=== PATIENT | male | born 1980 | race African-American/Black ===

== ENCOUNTER 2016-09-15 11:54 | Observation (INO) | payer MEDICAID ==
[~2016-09-15] VITALS: Ht 180.3 cm; Wt 67.0 kg
[~2016-09-15 11:54] MED LIST: ALBU6.7H INH; AMOX-291 PO; ARIP15TA2 PO; ARIP20TA8 PO; ARIP300S IM; BECL8.7A5 INH; BENZ1TAB61 PO; FLUT15.88 NAS; FLUT16SP NAS; LORA1TAB35 PO; MIRT15TA PO; OLAN5TAB3 PO; OLAN5TAB9 PO; OXYC500S2 PO; PROVENTIL NS; QVAR IH; RISP2TAB35 PO; TRAM50TA2 PO
[2016-09-15 12:54] LABS: ASPARTATE AMINO TRANSFERASE 20 U/L (15-37); BLOOD UREA NITROGEN 15 mg/dL (7-18)
[2016-09-15 12:56] LABS: ACETAMINOPHEN < 2 mcg/mL (10-30)
[2016-09-15 13:28] LABS: DAU SCREEN DISCLAIMER
[2016-09-15] MEDS ORDERED: ACETAMINOPHEN 325 MG TABLET PO PRN (15:30)
[2016-09-15] MEDS ORDERED: DOCUSATE 100 MG CAPSULE PO PRN (15:30)
[2016-09-15] MEDS ORDERED: LORazepam 1MG TABLET PO ONE (15:30)
[2016-09-15] MEDS ORDERED: OLANZAPINE 2.5 MG TABLET PO ONE (15:30)
[2016-09-15] MEDS: NICOTINE 14MG/24 HR PATCH.TD24 TD SCH (15:30)
[2016-09-15] MEDS ORDERED: ONDANSETRON ODT 4 MG PO PRN (15:30)
[2016-09-15] MEDS ORDERED: POLYETHYLENE GLYCOL 17 GM PACKET PO PRN (15:30)
[2016-09-15] MEDS ORDERED: BISACODYL 10 MG SUPP PR PRN (15:30)
[2016-09-15] MEDS ORDERED: AMOX1TAB64 PO (17:05)
[2016-09-15] MEDS ORDERED: ALBU6.7H INH (17:05)
[2016-09-15] MEDS ORDERED: BECL8.7A5 INH (17:07)
[2016-09-15] MEDS ORDERED: LORA10TA75 PO (17:07)
[2016-09-15] MEDS ORDERED: BENZ1TAB61 PO (17:07)
[2016-09-15 17:28] VITALS: BP 116/66
[2016-09-15 19:16] VITALS: BP 113/59
[2016-09-15] MEDS: OLANZAPINE 2.5 MG TABLET PO SCH (20:40)
[2016-09-16] MEDS: LORazepam 1MG TABLET PO PRN ×2 (07:58→15:38)
[2016-09-16] MEDS: ARIPIPRAZOLE 15 MG TABLET PO SCH (07:58)
[2016-09-16 07:59] VITALS: BP 112/67
[2016-09-16] MEDS ORDERED: IPRATROPIUM 0.5 MG/2.5 ML INHA ONE ×2 (08:15→16:19)
[2016-09-16] MEDS ORDERED: ALBUTEROL SULFATE 2.5 MG/3 ML ONE ×2 (08:15→16:19)
[2016-09-16] MEDS: ALBUTEROL/IPRATROPIUM 2.5MG/0.5MG, 3 ML NEB PRN ×2 (08:18→16:22)
[2016-09-16] MEDS: NICOTINE 14MG/24 HR PATCH.TD24 TD SCH (11:07)
[2016-09-16 19:18] VITALS: BP 110/68
[2016-09-16] MEDS: LACTOBACILLUS CHEW TABLET PO SCH (20:44)
[2016-09-16] MEDS: OLANZAPINE 2.5 MG TABLET PO SCH (20:44)
[2016-09-16] MEDS: AMOXICILLIN/CLAV 875-125MG TABLET PO SCH (20:45)
[2016-09-17] MEDS: ALBUTEROL/IPRATROPIUM 2.5MG/0.5MG, 3 ML NEB PRN ×2 (05:52→16:20)
[2016-09-17 07:03] VITALS: BP 120/76
[2016-09-17] MEDS: LACTOBACILLUS CHEW TABLET PO SCH ×3 (08:11→20:45)
[2016-09-17] MEDS: AMOXICILLIN/CLAV 875-125MG TABLET PO SCH ×2 (08:11→20:45)
[2016-09-17] MEDS: ARIPIPRAZOLE 15 MG TABLET PO SCH (08:15)
[2016-09-17] MEDS: NICOTINE 14MG/24 HR PATCH.TD24 TD SCH (15:59)
[2016-09-17 19:09] VITALS: BP 107/64
[2016-09-17] MEDS: OLANZAPINE 2.5 MG TABLET PO SCH (20:45)
[2016-09-17] MEDS: TEMPLATE NON-FORMULARY MED. (QVAR 80 MCG) INH SCH (20:48)
[2016-09-18 07:45] VITALS: BP 132/76
[2016-09-18] MEDS: AMOXICILLIN/CLAV 875-125MG TABLET PO SCH ×2 (08:18→20:16)
[2016-09-18] MEDS: TEMPLATE NON-FORMULARY MED. (QVAR 80 MCG) INH SCH ×2 (08:18→21:10)
[2016-09-18] MEDS: LACTOBACILLUS CHEW TABLET PO SCH ×3 (08:18→20:16)
[2016-09-18] MEDS: ARIPIPRAZOLE 15 MG TABLET PO SCH (08:20)
[2016-09-18] MEDS: ALBUTEROL/IPRATROPIUM 2.5MG/0.5MG, 3 ML NEB PRN ×2 (10:55→23:30)
[2016-09-18] MEDS: NICOTINE 14MG/24 HR PATCH.TD24 TD SCH (15:30)
[2016-09-18 19:43] VITALS: BP 130/76
[2016-09-18] MEDS: OLANZAPINE 2.5 MG TABLET PO SCH (20:16)
[2016-09-18] MEDS ORDERED: ALBUTEROL SULFATE 2.5 MG/3 ML ONE (23:32)
[2016-09-19 07:36] VITALS: BP 132/84
[2016-09-19] MEDS: ARIPIPRAZOLE 15 MG TABLET PO SCH (09:00)
[2016-09-19] MEDS: TEMPLATE NON-FORMULARY MED. (QVAR 80 MCG) INH SCH (09:00)
[2016-09-19] MEDS: AMOXICILLIN/CLAV 875-125MG TABLET PO SCH (09:23)
[2016-09-19] MEDS: LACTOBACILLUS CHEW TABLET PO SCH (09:23)
[2016-09-19] MEDS ORDERED: AMOX1TAB12 PO (10:13)
[2016-09-19] MEDS ORDERED: QVAR INH (10:13)
[2016-09-19] MEDS ORDERED: ACID1TAB7 PO (10:13)
[2016-09-19] MEDS ORDERED: OLAN2.5T5 PO (10:13)
== END 2016-09-19 11:43 ==
LOC: ED 14:31 → EDIP 14:32 → ED 14:49 → 3E 16:07
PROVIDERS: ADMIT Internal Medicine; ATTEND Internal Medicine
DX: R45.851 Suicidal ideations (principal); F15.90 Other stimulant use, unspecified, uncomplicated; F31.9 Bipolar disorder, unspecified; F20.9 Schizophrenia, unspecified; J45.909 Unspecified asthma, uncomplicated; F17.210 Nicotine dependence, cigarettes, uncomplicated
CPT/HCPCS: 36415; 71010; 80053; 80307; 80329; 85025; 93005; 94640; 99285; G0378; J7613; J7620; J7644; G0480

== ENCOUNTER 2017-01-03 17:32 | Emergency (ER) | payer MEDICAID ==
[~2017-01-03] VITALS: Ht 180.3 cm; Wt 69.0 kg
[~2017-01-03 17:32] MED LIST changes: +ACID1TAB7 PO; +AMOX1TAB12 PO; +AMOX1TAB64 PO; -ARIP15TA2 PO; +ARIP15TA3 PO; +ARIP20TA5 PO; -ARIP20TA8 PO; -BECL8.7A5 INH; +BECL8.7A7 INH; +LORA10TA75 PO; +OLAN2.5T10 PO; +QVAR INH
[2017-01-03 18:11] VITALS: BP 122/52
== END 2017-01-03 18:20 | disposition home or self-care (01) ==
LOC: ED 18:00
DX: J45.21 Mild intermittent asthma with (acute) exacerbation (principal); F25.9 Schizoaffective disorder, unspecified
CPT/HCPCS: 93005; 99283

== ENCOUNTER 2017-04-17 07:19 | Observation (INO) | payer MEDICAID ==
[~2017-04-17] VITALS: Ht 180.3 cm; Wt 78.0 kg
[2017-04-17] MEDS ORDERED: ZIPRASIDONE 20 MG INJ IM ONE ×2 (07:30→07:49)
[2017-04-17 07:50] LABS: BASOPHILS # (AUTO) 0.07 x10^3/uL (0-0.1); BASOPHILS % (AUTO) 1 % (0-1); EOSINOPHILS # (AUTO) 0.16 x10^3/uL (0-0.4); EOSINOPHILS % (AUTO) 3 % (1-7); LYMPHOCYTES # (AUTO) 1.82 x10^3/uL (1-3.4); LYMPHOCYTES % (AUTO) 30 % (22-44); MD NO; MEAN CORPUSCULAR HEMOGLOBIN 29.6 pg (27.5-34.5); MEAN CORPUSCULAR VOLUME 89.4 fL (81-97); MEAN PLATELET VOLUME 7.3 fL (7.4-10.4); MONOCYTES # (AUTO) 0.69 x10^3/uL (0.2-0.8); MONOCYTES % (AUTO) 11 % (2-9); NEUTROPHILS # (AUTO) 3.41 x10^3/uL (1.8-6.8); NEUTROPHILS % (AUTO) 56 % (42-75); PLATELET COUNT 280 x10^3/uL (130-400); RED BLOOD COUNT 5.12 x10^6/uL (4.38-5.82); RED CELL DISTRIBUTION WIDTH 14.2 % (9.4-14.8)
[2017-04-17] MEDS ORDERED: COGENTIN PO (07:58)
[2017-04-17] MEDS ORDERED: ARIP2TAB2 PO (07:58)
[2017-04-17 08:04] LABS: ALBUMIN 3.9 g/dL (3.4-5.0); ANION GAP 5 mmol/L (5-15); CALCIUM 8.8 mg/dL (8.5-10.1); CHLORIDE 105 mmol/L (98-107); CREATININE 1.21 mg/dL (0.7-1.3)
[2017-04-17 08:05] LABS: AMPHETAMINE SCREEN, URINE Negative (Negative); BARBITURATE SCREEN, URINE Negative (Negative); BENZODIAZEPINE SCREEN, URINE Negative (Negative); CANNABINOID SCREEN, URINE Negative (Negative); COCAINE SCREEN, URINE Negative (Negative); METHADONE SCREEN, URINE Negative (Negative); OPIATE SCREEN, URINE Negative (Negative)
[2017-04-17 08:12] LABS: ACETAMINOPHEN < 2 mcg/mL (10-30); SALICYLATE LEVEL < 1.7 mg/dL (2.8-20.0)
[2017-04-17] MEDS ORDERED: HALOPERIDOL 5 MG TABLET PO PRN (12:00)
[2017-04-17] MEDS ORDERED: ONDANSETRON ODT 4 MG PO PRN (12:00)
[2017-04-17] MEDS ORDERED: HALOPERIDOL 5 MG/ML IM PRN (12:00)
[2017-04-17] MEDS ORDERED: ACETAMINOPHEN 325 MG TABLET PO PRN (12:00)
[2017-04-17] MEDS ORDERED: LORazepam 2 MG/ML, 1ML IM PRN (12:00)
[2017-04-17] MEDS ORDERED: LORazepam 1MG TABLET PO PRN (12:00)
[2017-04-17 15:14] LABS: MICROSCOPIC INDICATED
[2017-04-17 15:48] LABS: CULTURE INDICATED? NO
[2017-04-17] MEDS ORDERED: HALOPERIDOL 5 MG/ML ONE (19:27)
[2017-04-17] MEDS: BENZTROPINE 1 MG TABLET PO SCH (21:00)
[2017-04-17 21:11] VITALS: BP 115/72
[2017-04-17] MEDS ORDERED: ALBUTEROL SULFATE 2.5 MG/3 ML NPPB PRN (21:30)
[2017-04-18] MEDS ORDERED: ALBUTEROL SULFATE 2.5 MG/3 ML NPPB PRN (05:00)
[2017-04-18 07:19] VITALS: BP 125/64
[2017-04-18] MEDS: ARIPIPRAZOLE 2 MG TABLET PO SCH (09:37)
[2017-04-18] MEDS: BENZTROPINE 1 MG TABLET PO SCH ×2 (09:38→20:49)
[2017-04-18 19:25] VITALS: BP 110/66
[2017-04-19 07:20] VITALS: BP 116/70
[2017-04-19] MEDS: ARIPIPRAZOLE 2 MG TABLET PO SCH (07:55)
[2017-04-19] MEDS: BENZTROPINE 1 MG TABLET PO SCH ×2 (07:55→19:58)
[2017-04-19 19:17] VITALS: BP 102/48
[2017-04-20 07:07] VITALS: BP 123/75
[2017-04-20] MEDS: BENZTROPINE 1 MG TABLET PO SCH ×2 (08:19→21:05)
[2017-04-20] MEDS: ARIPIPRAZOLE 2 MG TABLET PO SCH (08:19)
[2017-04-20 20:07] VITALS: BP 126/75
[2017-04-21 07:37] VITALS: BP 120/76
[2017-04-21] MEDS: BENZTROPINE 1 MG TABLET PO SCH ×2 (08:17→20:44)
[2017-04-21] MEDS: ARIPIPRAZOLE 2 MG TABLET PO SCH (08:17)
[2017-04-21 20:49] VITALS: BP 112/63
[2017-04-22 07:39] VITALS: BP 114/69
[2017-04-22] MEDS: BENZTROPINE 1 MG TABLET PO SCH ×2 (08:19→20:12)
[2017-04-22] MEDS: ARIPIPRAZOLE 2 MG TABLET PO SCH (08:19)
[2017-04-22 19:48] VITALS: BP 118/58
[2017-04-23 05:54] LABS: ANION GAP 5 mmol/L (5-15); CALCIUM 8.4 mg/dL (8.5-10.1); CHLORIDE 105 mmol/L (98-107); CREATININE 1.16 mg/dL (0.7-1.3)
[2017-04-23 08:00] VITALS: BP 118/64
[2017-04-23] MEDS: ARIPIPRAZOLE 2 MG TABLET PO SCH (08:59)
[2017-04-23] MEDS: BENZTROPINE 1 MG TABLET PO SCH (08:59)
== END 2017-04-23 16:00 ==
LOC: ED 09:27 → EDIP 09:28 → ED 09:42 → 2N 21:10
PROVIDERS: ADMIT Family Medicine; ATTEND Family Medicine
DX: R45.851 Suicidal ideations (principal); F31.9 Bipolar disorder, unspecified; F25.9 Schizoaffective disorder, unspecified; J45.909 Unspecified asthma, uncomplicated; F20.0 Paranoid schizophrenia; R44.1 Visual hallucinations; R44.0 Auditory hallucinations; Z72.0 Tobacco use; Z59.0 Homelessness
CPT/HCPCS: 36415; 80048; 80307; 80329; 81001; 82040; 82962; 85025; 94640; 96372; 99285; G0378; J1630; J3486; J7613; G0480

== ENCOUNTER 2017-05-27 17:06 | Emergency (ER) | payer MEDICAID ==
[~2017-05-27] VITALS: Ht 188 cm; Wt 59.1 kg
[~2017-05-27 17:06] MED LIST changes: +ARIP2TAB2 PO; +COGENTIN PO
[2017-05-27 17:36] LABS: BASOPHILS # (AUTO) 0.02 x10^3/uL (0-0.1); BASOPHILS % (AUTO) 0 % (0-1); EOSINOPHILS # (AUTO) 0.12 x10^3/uL (0-0.4); EOSINOPHILS % (AUTO) 2 % (1-7); LYMPHOCYTES # (AUTO) 2.38 x10^3/uL (1-3.4); LYMPHOCYTES % (AUTO) 38 % (22-44); MD NO; MEAN CORPUSCULAR HEMOGLOBIN 29.6 pg (27.5-34.5); MEAN CORPUSCULAR HGB CONC 33.2 g/dL (33.2-36.2); MEAN PLATELET VOLUME 7.7 fL (7.4-10.4); MONOCYTES # (AUTO) 0.53 x10^3/uL (0.2-0.8); MONOCYTES % (AUTO) 9 % (2-9); NEUTROPHILS # (AUTO) 3.16 x10^3/uL (1.8-6.8); NEUTROPHILS % (AUTO) 51 % (42-75); PLATELET COUNT 280 x10^3/uL (130-400); RED CELL DISTRIBUTION WIDTH 14.1 % (9.4-14.8)
[2017-05-27 17:38] LABS: ALBUMIN 4.1 g/dL (3.4-5.0); ANION GAP 8 mmol/L (5-15); CALCIUM 8.6 mg/dL (8.5-10.1); CHLORIDE 105 mmol/L (98-107); CREATININE 1.29 mg/dL (0.7-1.3)
[2017-05-27 17:39] LABS: ACETAMINOPHEN < 2 mcg/mL (10-30); SALICYLATE LEVEL < 1.7 mg/dL (2.8-20.0)
[2017-05-27 18:06] VITALS: BP 164/72
[2017-05-27 18:06] LABS: AMPHETAMINE SCREEN, URINE Negative (Negative); BARBITURATE SCREEN, URINE Negative (Negative); BENZODIAZEPINE SCREEN, URINE Negative (Negative); CANNABINOID SCREEN, URINE Negative (Negative); COCAINE SCREEN, URINE Negative (Negative); METHADONE SCREEN, URINE Negative (Negative); OPIATE SCREEN, URINE Negative (Negative)
== END 2017-05-27 18:35 | disposition home or self-care (01) ==
LOC: ED 17:38
DX: Z72.89 Other problems related to lifestyle (principal); Z59.0 Homelessness; Z79.899 Other long term (current) drug therapy
CPT/HCPCS: 36415; 80048; 80307; 80329; 82040; 85025; 99284; G0480

== ENCOUNTER 2017-05-27 23:19 | Emergency (ER) | payer MEDICAID ==
[~2017-05-27] VITALS: Ht 180.3 cm; Wt 74.4 kg
[2017-05-27 23:21] VITALS: BP 123/73
== END 2017-05-28 00:03 | disposition home or self-care (01) ==
LOC: ED 23:36
DX: F31.9 Bipolar disorder, unspecified (principal); Z72.9 Problem related to lifestyle, unspecified; J45.909 Unspecified asthma, uncomplicated; F25.9 Schizoaffective disorder, unspecified
CPT/HCPCS: 99284

== ENCOUNTER 2017-08-15 21:25 | Emergency (ER) | payer MEDICAID ==
[~2017-08-15] VITALS: Ht 180.3 cm; Wt 69.7 kg
[2017-08-15 21:27] VITALS: BP 122/76
[2017-08-15] MEDS ORDERED: ANTIBIOTIC PO (22:32)
[2017-08-15 23:01] LABS: BASOPHILS # (AUTO) 0.05 x10^3/uL (0-0.1); BASOPHILS % (AUTO) 1 % (0-1); EOSINOPHILS % (AUTO) 1 % (1-7); LYMPHOCYTES # (AUTO) 1.89 x10^3/uL (1-3.4); LYMPHOCYTES % (AUTO) 27 % (22-44); MD NO; MEAN CORPUSCULAR HEMOGLOBIN 29.7 pg (27.5-34.5); MEAN CORPUSCULAR HGB CONC 33.5 g/dL (33.2-36.2); MEAN CORPUSCULAR VOLUME 88.8 fL (81-97); MEAN PLATELET VOLUME 7.3 fL (7.4-10.4); MONOCYTES # (AUTO) 0.42 x10^3/uL (0.2-0.8); MONOCYTES % (AUTO) 6 % (2-9); NEUTROPHILS # (AUTO) 4.49 x10^3/uL (1.8-6.8); NEUTROPHILS % (AUTO) 65 % (42-75); PLATELET COUNT 300 x10^3/uL (130-400); RED BLOOD COUNT 4.83 x10^6/uL (4.38-5.82); RED CELL DISTRIBUTION WIDTH 14.2 % (9.4-14.8)
[2017-08-15 23:11] LABS: ALANINE AMINOTRANSFERASE 38 U/L (12-78); ALBUMIN 3.4 g/dL (3.4-5.0); ANION GAP 6 mmol/L (5-15); CALCIUM 8.7 mg/dL (8.5-10.1); CHLORIDE 112 mmol/L (98-107); CREATININE 1.25 mg/dL (0.7-1.3)
[2017-08-15 23:12] LABS: ALKALINE PHOSPHATASE 68 U/L (45-117); BILIRUBIN,TOTAL 0.3 mg/dL (0.2-1.0); TOTAL PROTEIN 6.5 g/dL (6.4-8.2)
[2017-08-15 23:18] LABS: ACETAMINOPHEN < 2 mcg/mL (10-30); SALICYLATE LEVEL < 1.7 mg/dL (2.8-20.0)
[2017-08-15 23:33] LABS: AMPHETAMINE SCREEN, URINE Negative (Negative); BARBITURATE SCREEN, URINE Negative (Negative); BENZODIAZEPINE SCREEN, URINE Negative (Negative); CANNABINOID SCREEN, URINE Negative (Negative); COCAINE SCREEN, URINE Negative (Negative); METHADONE SCREEN, URINE Negative (Negative); OPIATE SCREEN, URINE Negative (Negative)
== END 2017-08-16 02:31 | disposition home or self-care (01) ==
LOC: ED 22:45
DX: F32.0 Major depressive disorder, single episode, mild (principal); F25.9 Schizoaffective disorder, unspecified; F41.9 Anxiety disorder, unspecified; F17.200 Nicotine dependence, unspecified, uncomplicated; J45.909 Unspecified asthma, uncomplicated; Z72.89 Other problems related to lifestyle; Z60.9 Problem related to social environment, unspecified; Z91.14 Patient's other noncompliance with medication regimen; Z59.0 Homelessness
CPT/HCPCS: 36415; 80053; 80307; 80329; 85025; 99284; G0480

== ENCOUNTER 2017-08-22 15:07 | Observation (INO) | payer MEDICAID ==
[~2017-08-22] VITALS: Ht 180.3 cm; Wt 69.7 kg
[~2017-08-22 15:07] MED LIST changes: +ANTIBIOTIC PO
[2017-08-22 15:56] LABS: AMPHETAMINE SCREEN, URINE Negative (Negative); BARBITURATE SCREEN, URINE Negative (Negative); BENZODIAZEPINE SCREEN, URINE Negative (Negative); CANNABINOID SCREEN, URINE Negative (Negative); COCAINE SCREEN, URINE Negative (Negative); METHADONE SCREEN, URINE Negative (Negative); OPIATE SCREEN, URINE Negative (Negative)
[2017-08-22 16:11] LABS: ALBUMIN 3.2 g/dL (3.4-5.0); ANION GAP 4 mmol/L (5-15); CALCIUM 8.8 mg/dL (8.5-10.1); CHLORIDE 110 mmol/L (98-107)
[2017-08-22 16:12] LABS: SALICYLATE LEVEL < 1.7 mg/dL (2.8-20.0)
[2017-08-22 16:13] LABS: ACETAMINOPHEN < 2 mcg/mL (10-30); CREATININE 1.08 mg/dL (0.7-1.3)
[2017-08-22 16:34] LABS: MD YES; MEAN CORPUSCULAR HEMOGLOBIN 29.6 pg (27.5-34.5); MEAN CORPUSCULAR HGB CONC 32.9 g/dL (33.2-36.2); MEAN PLATELET VOLUME 7.1 fL (7.4-10.4); PLATELET COUNT 282 x10^3/uL (130-400); RED BLOOD COUNT 4.49 x10^6/uL (4.38-5.82); RED CELL DISTRIBUTION WIDTH 14.1 % (9.4-14.8)
[2017-08-22 16:39] LABS: BASOS#(MANUAL) 0.04 x10^3/uL (0-0.1); BASOS% (MANUAL) 1 % (0-1); LYMPH#(MANUAL) 1.31 x10^3/uL (1-3.4); LYMPHS% (MANUAL) 32 % (22-44); MONOS#(MANUAL) 0.33 x10^3/uL (0.3-2.7); MONOS% (MANUAL) 8 % (2-9); NRBC % (MANUAL) 2 % (0-1); REACTIVE LYMPHS # (MANUAL) 0.12 x10^3/uL (0-0); REACTIVE LYMPHS % (MANUAL) 3 % (0-0); SEGS% (MANUAL) 56 % (42-75)
[2017-08-22 16:40] LABS: <PLATELET ESTIMATE> ADEQUATE; <PLT MORPHOLOGY> NORMAL PLT MORPH; HYPOCHROMIA 1+
[2017-08-22] MEDS ORDERED: ALBUTEROL/IPRATROPIUM 2.5MG/0.5MG, 3 ML NPPB ONE (19:00)
[2017-08-22] MEDS ORDERED: ALBUTEROL/IPRATROPIUM 2.5MG/0.5MG, 3 ML ONE (19:37)
[2017-08-22] MEDS ORDERED: DIPHENHYDRAMINE 50 MG CAPSULE PO PRN (21:00)
[2017-08-22] MEDS ORDERED: NICOTINE 7 MG/24 HR PATCH.TD24 TD SCH (21:00)
[2017-08-22] MEDS ORDERED: BISACODYL 10 MG SUPP PR PRN (21:00)
[2017-08-22] MEDS ORDERED: ACETAMINOPHEN 325 MG TABLET PO PRN (21:00)
[2017-08-22] MEDS ORDERED: POLYETHYLENE GLYCOL 17 GM PACKET PO PRN (21:00)
[2017-08-22] MEDS ORDERED: ONDANSETRON ODT 4 MG PO PRN (21:00)
[2017-08-22] MEDS: ALBUTEROL SULFATE 2.5 MG/3 ML NPPB SCH (21:00)
[2017-08-22] MEDS ORDERED: NICOTINE 7 MG/24 HR PATCH.TD24 ONE (21:57)
[2017-08-23] MEDS: ALBUTEROL SULFATE 2.5 MG/3 ML NPPB SCH ×2 (06:00→09:51)
[2017-08-23] MEDS ORDERED: ARIP2TAB2 PO (07:30)
[2017-08-23] MEDS ORDERED: BENZ2AMP4 PO (07:30)
[2017-08-23] MEDS ORDERED: SENNA/DOCUSATE TABLET PO SCH (09:00)
[2017-08-23 09:43] VITALS: BP 128/78
[2017-08-23] MEDS ORDERED: ALBUTEROL SULFATE 2.5 MG/3 ML ONE (09:49)
[2017-08-23] MEDS ORDERED: NICOTINE 7 MG/24 HR PATCH.TD24 TD SCH (12:17)
== END 2017-08-23 13:10 ==
LOC: ED 20:44 → EDIP 21:50
PROVIDERS: ADMIT Internal Medicine; ATTEND Internal Medicine
DX: R45.851 Suicidal ideations (principal); F25.9 Schizoaffective disorder, unspecified; J45.909 Unspecified asthma, uncomplicated; F17.210 Nicotine dependence, cigarettes, uncomplicated; F31.9 Bipolar disorder, unspecified; R44.0 Auditory hallucinations; R44.1 Visual hallucinations; Z59.0 Homelessness
CPT/HCPCS: 36415; 80048; 80307; 80329; 82040; 85025; 94640; 99285; G0378; G0480

== ENCOUNTER 2017-09-07 05:44 | Emergency (ER) | payer MEDICAID ==
[~2017-09-07] VITALS: Ht 180.3 cm; Wt 70.9 kg
[~2017-09-07 05:44] MED LIST changes: +BENZ2AMP4 PO
[2017-09-07 05:47] VITALS: BP 134/84
== END 2017-09-07 06:28 | disposition home or self-care (01) ==
LOC: ED 06:25
DX: J45.40 Moderate persistent asthma, uncomplicated (principal); Z76.0 Encounter for issue of repeat prescription; F25.9 Schizoaffective disorder, unspecified; F31.9 Bipolar disorder, unspecified
CPT/HCPCS: 93005; 99283

== ENCOUNTER 2017-09-19 00:55 | Emergency (ER) | payer MEDICAID ==
[~2017-09-19] VITALS: Ht 180.3 cm; Wt 64.0 kg
[2017-09-19] MEDS ORDERED: ALBUTEROL/IPRATROPIUM 2.5MG/0.5MG, 3 ML NPPB ONE (01:30)
[2017-09-19] MEDS ORDERED: ALBUTEROL/IPRATROPIUM 2.5MG/0.5MG, 3 ML ONE (01:38)
[2017-09-19 04:20] VITALS: BP 123/81
== END 2017-09-19 04:22 | disposition home or self-care (01) ==
LOC: ED 01:06
DX: J45.31 Mild persistent asthma with (acute) exacerbation (principal); F17.200 Nicotine dependence, unspecified, uncomplicated; Z72.9 Problem related to lifestyle, unspecified
CPT/HCPCS: 71046; 93005; 99284; J7620

== ENCOUNTER 2017-10-06 03:32 | Emergency (ER) | payer MEDICAID ==
[~2017-10-06] VITALS: Ht 180.3 cm; Wt 75.0 kg
[2017-10-06 03:39] VITALS: BP 127/64
[2017-10-06] MEDS ORDERED: ARIPIPRAZOLE 10 MG TABLET ONE (03:51)
[2017-10-06] MEDS ORDERED: LORazepam 1MG TABLET ONE (03:52)
[2017-10-06] MEDS ORDERED: ARIPIPRAZOLE 10 MG TABLET PO ONE (04:00)
[2017-10-06] MEDS ORDERED: LORazepam 1MG TABLET PO ONE (04:00)
== END 2017-10-06 03:58 | disposition home or self-care (01) ==
LOC: ED 03:45
DX: F41.1 Generalized anxiety disorder (principal); F20.0 Paranoid schizophrenia; F29 Unspecified psychosis not due to a substance or known physiological condition; J45.909 Unspecified asthma, uncomplicated; Z72.9 Problem related to lifestyle, unspecified
CPT/HCPCS: 99283; 99284

== ENCOUNTER 2017-11-12 16:32 | Emergency (ER) | payer MEDICAID ==
[~2017-11-12] VITALS: Ht 180.3 cm; Wt 73.0 kg
[2017-11-12 18:42] VITALS: BP 124/76
== END 2017-11-12 18:53 | disposition home or self-care (01) ==
LOC: ED 18:50
DX: R09.89 Other specified symptoms and signs involving the circulatory and respiratory systems (principal); J45.909 Unspecified asthma, uncomplicated; F31.9 Bipolar disorder, unspecified; F25.9 Schizoaffective disorder, unspecified; F17.200 Nicotine dependence, unspecified, uncomplicated
CPT/HCPCS: 71046; 93005; 99284

== ENCOUNTER 2017-12-18 05:15 | Emergency (ER) | payer MEDICAID ==
[~2017-12-18] VITALS: Ht 180.3 cm; Wt 67.5 kg
[2017-12-18 05:17] VITALS: BP 125/76
[2017-12-18] MEDS ORDERED: CETI10CA PO (05:42)
== END 2017-12-18 05:58 | disposition home or self-care (01) ==
LOC: ED 05:53
DX: R45.851 Suicidal ideations (principal); F25.9 Schizoaffective disorder, unspecified
CPT/HCPCS: 99283

== ENCOUNTER 2017-12-26 16:19 | Emergency (ER) | payer MEDICAID ==
[~2017-12-26] VITALS: Ht 180.3 cm; Wt 70.9 kg
[~2017-12-26 16:19] MED LIST changes: +CETI10CA PO
[2017-12-26] MEDS ORDERED: BENZTROPINE 1 MG TABLET ONE (17:24)
[2017-12-26 17:36] VITALS: BP 138/84
[2017-12-26] MEDS ORDERED: ARIPIPRAZOLE 2 MG TABLET PO ONE (18:00)
[2017-12-26] MEDS ORDERED: BENZTROPINE 1 MG TABLET PO ONE (18:00)
== END 2017-12-26 17:38 | disposition home or self-care (01) ==
LOC: ED 17:32
DX: F20.0 Paranoid schizophrenia (principal); Z91.14 Patient's other noncompliance with medication regimen; Z76.0 Encounter for issue of repeat prescription
CPT/HCPCS: 99284

== ENCOUNTER 2018-03-21 18:51 | Emergency (ER) | payer MEDICAID ==
[~2018-03-21] VITALS: Ht 180.3 cm; Wt 70.5 kg
[2018-03-21 19:07] VITALS: BP 140/74
[2018-03-21 20:10] LABS: MICROSCOPIC INDICATED
[2018-03-21 20:16] LABS: BASOPHILS # (AUTO) 0.03 x10^3/uL (0-0.1); BASOPHILS % (AUTO) 0 % (0-1); EOSINOPHILS # (AUTO) 0.14 x10^3/uL (0-0.4); EOSINOPHILS % (AUTO) 2 % (1-7); LYMPHOCYTES # (AUTO) 1.86 x10^3/uL (1-3.4); LYMPHOCYTES % (AUTO) 24 % (22-44); MD NO; MEAN CORPUSCULAR HEMOGLOBIN 29.9 pg (27.5-34.5); MEAN CORPUSCULAR HGB CONC 33.5 g/dL (33.2-36.2); MEAN CORPUSCULAR VOLUME 89.1 fL (81-97); MEAN PLATELET VOLUME 7.8 fL (7.4-10.4); MONOCYTES # (AUTO) 0.73 x10^3/uL (0.2-0.8); MONOCYTES % (AUTO) 9 % (2-9); NEUTROPHILS # (AUTO) 5.17 x10^3/uL (1.8-6.8); NEUTROPHILS % (AUTO) 65 % (42-75); PLATELET COUNT 293 x10^3/uL (130-400); RED BLOOD COUNT 5.01 x10^6/uL (4.38-5.82); RED CELL DISTRIBUTION WIDTH 13.3 % (9.4-14.8)
[2018-03-21 20:24] LABS: ALANINE AMINOTRANSFERASE 59 U/L (12-78); ALBUMIN 3.9 g/dL (3.4-5.0); ANION GAP 10 mmol/L (5-15); CHLORIDE 108 mmol/L (98-107); CREATININE 1.27 mg/dL (0.7-1.3)
[2018-03-21 20:25] LABS: INTERNATIONAL NORMALIZED RATIO 1.08 (0.93-1.1); PROTHROMBIN TIME 11.4 Seconds (9.6-11.5)
[2018-03-21 20:25] LABS: CULTURE INDICATED? NO
[2018-03-21 20:26] LABS: ALKALINE PHOSPHATASE 109 U/L (45-117); BILIRUBIN,TOTAL 0.9 mg/dL (0.2-1.0); TOTAL PROTEIN 7.6 g/dL (6.4-8.2)
== END 2018-03-21 20:45 | disposition home or self-care (01) ==
LOC: ED 20:39
DX: K62.5 Hemorrhage of anus and rectum (principal); K64.4 Residual hemorrhoidal skin tags; R31.29 Other microscopic hematuria
CPT/HCPCS: 36415; 80053; 81001; 83690; 85025; 85610; 85730; 99283

== ENCOUNTER 2018-05-07 22:51 | Emergency (ER) | payer MEDICAID ==
[~2018-05-07] VITALS: Ht 180.3 cm; Wt 76.7 kg
[2018-05-07 22:54] VITALS: BP 138/47
== END 2018-05-08 00:45 | disposition home or self-care (01) ==
LOC: ED 23:12
DX: R06.00 Dyspnea, unspecified (principal); F17.200 Nicotine dependence, unspecified, uncomplicated; J45.909 Unspecified asthma, uncomplicated
CPT/HCPCS: 71046; 99283

== ENCOUNTER 2019-03-28 03:30 | Emergency (ER) | payer MEDICAID ==
[~2019-03-28] VITALS: Ht 180.3 cm; Wt 72.0 kg
[~2019-03-28 03:30] MED LIST changes: -ALBU6.7H INH; +ALBU6.7H8 INH; +FLUT15.845 NAS; -FLUT15.88 NAS; -FLUT16SP NAS; +FLUT16SP24 NAS
[2019-03-28 03:34] VITALS: BP 126/81
--- NOTE | 2019-03-28 03:34 | NUR ---
PA AT BEDSIDE TO ASSESS PT
--- NOTE | 2019-03-28 03:42 | NUR ---
BIB EMS FROM [facility], PT HAS PRODUCTIVE COUGH X3DAYS, YESTERDAY DX WITH FLU. PT HAS HX OF ASTHMA AND HAS BEEN USING INHALER. PT STS HE NEEDS A BREATHING TX, PT SAT 98% RA. PT CONNECTED TO MONITORING, LOBITOSBALDEV
--- NOTE | 2019-03-28 03:59 | NUR ---
XRAY AT BEDSIDE
== END 2019-03-28 04:48 | disposition home or self-care (01) ==
LOC: ED 04:17
DX: B34.9 Viral infection, unspecified (principal); J45.909 Unspecified asthma, uncomplicated
CPT/HCPCS: 71045; 99283

== ENCOUNTER 2019-04-04 02:19 | Emergency (ER) | payer MEDICAID ==
[~2019-04-04] VITALS: Ht 180.3 cm; Wt 74.8 kg
[2019-04-04 02:22] VITALS: BP 146/67
--- NOTE | 2019-04-04 02:44 | NUR ---
CALLED FOR ROOM, NO ANSWER
--- NOTE | 2019-04-04 03:10 | NUR ---
PT REQUESTING SOMEPLACE TO SLEEP AT THIS TIME, CONTINUES TO DENY HI/SI
--- NOTE | 2019-04-04 03:22 | NUR ---
PT REMAINS PLEASANT AND COOPERATIVE AT THIS TIME, REQUESTING VOUCHER TO LONG-TERM/
== END 2019-04-04 04:00 | disposition home or self-care (01) ==
LOC: ED 03:40
DX: F41.1 Generalized anxiety disorder (principal); F20.9 Schizophrenia, unspecified; Z59.0 Homelessness; Z72.9 Problem related to lifestyle, unspecified; Z75.9 Unspecified problem related to medical facilities and other health care; Z91.14 Patient's other noncompliance with medication regimen; Z63.8 Other specified problems related to primary support group
CPT/HCPCS: 99283

== ENCOUNTER 2019-04-16 23:45 | Emergency (ER) | payer MEDICAID ==
[~2019-04-16] VITALS: Ht 180.3 cm; Wt 75.8 kg
[2019-04-16 23:47] VITALS: BP 125/85
--- NOTE | 2019-04-17 00:29 | NUR ---
Pt alert and resting on gurney. Pt reports feeling increased WOB this evening. 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 Pt lungs clear. No increased WOB noted. Pt placed on pulse ox/HR monitor. Pt 98% RA. Pt given call light.
[2019-04-17] MEDS ORDERED: DEXAMETHASONE 4 MG TABLET PO ONE (00:30)
[2019-04-17] MEDS ORDERED: DEXAMETHASONE 4 MG TABLET ONE (00:36)
--- NOTE | 2019-04-17 00:40 | NUR ---
Pt sleeping when RN entered room but awakened easily. Pt medicated per MAR. Call light within reach.
[2019-04-17] MEDS ORDERED: ALBUTEROL/IPRATROPIUM 2.5MG/0.5MG, 3 ML ONE (00:45)
[2019-04-17 00:52] LABS: RAPID INFLUENZA A Negative (Negative); RAPID INFLUENZA B POSITIVE (Negative)
[2019-04-17] MEDS ORDERED: ALBUTEROL/IPRATROPIUM 2.5MG/0.5MG, 3 ML NPPB ONE (01:00)
--- NOTE | 2019-04-17 01:00 | NUR ---
Pt resting on gurney. Pt reports he did get his breathing tx.
--- NOTE | 2019-04-17 01:52 | NUR ---
Pt dc'd to self care. Pt educated on prescriptions, fluids, home care, follow-up and S/Sx to return. Pt WALLY. HUA. Bus pass given.
== END 2019-04-17 02:03 | disposition home or self-care (01) ==
LOC: ED 04-17 00:30
DX: J10.1 Influenza due to other identified influenza virus with other respiratory manifestations (principal); J45.901 Unspecified asthma with (acute) exacerbation; F17.210 Nicotine dependence, cigarettes, uncomplicated
CPT/HCPCS: 71046; 87400; 87880; 94640; 99284; J7620

== ENCOUNTER 2019-05-11 00:47 | Emergency (ER) | payer MEDICAID ==
[~2019-05-11] VITALS: Ht 180.3 cm; Wt 79.0 kg
[2019-05-11 00:54] VITALS: BP 120/59
--- NOTE | 2019-05-11 01:14 | NUR ---
Reports "bad cough for 1 week", placed vitals signs monitors on. Pt laying in gurney in no obvious distress, call light within reach.
== END 2019-05-11 02:39 | disposition home or self-care (01) ==
LOC: ED 02:33
DX: J11.1 Influenza due to unidentified influenza virus with other respiratory manifestations (principal)
CPT/HCPCS: 99281

== ENCOUNTER 2019-05-23 00:26 | Emergency (ER) | payer MEDICAID ==
[~2019-05-23] VITALS: Ht 180.3 cm; Wt 68.0 kg
--- NOTE | 2019-05-23 00:40 | NUR ---
THIS IS A 39Y M BIB EMS FROM [facility]. PT WAS RELEASED TONIGHT AROUND 10PM AND HAS BEEN STANDING OUT IN FRONT OF [facility] SINCE THEN. PT REPORTS CONCERN ABOUT BURNING IN HIS THROAT AND NOT TAKING HIS PRILOSEC FOR 1WK. PT ALSO REPORTS OCCASIONAL COUGH. PT CONNECTED TO MONITORING, BALDEV CRAFT.
[2019-05-23] MEDS ORDERED: MAALOX/HYOSCYAMINE/LIDOCAINE 45 ML BTL PO ONE (01:00)
[2019-05-23] MEDS ORDERED: MAALOX/HYOSCYAMINE/LIDOCAINE 45 ML BTL ONE (01:04)
[2019-05-23 01:10] LABS: BASOPHILS # (AUTO) 0.02 x10^3/uL (0-0.1); BASOPHILS % (AUTO) 0 % (0-1); EOSINOPHILS # (AUTO) 0.12 x10^3/uL (0-0.4); EOSINOPHILS % (AUTO) 2 % (1-7); LYMPHOCYTES # (AUTO) 1.15 x10^3/uL (1-3.4); LYMPHOCYTES % (AUTO) 23 % (22-44); MD NO; MEAN CORPUSCULAR HEMOGLOBIN 30.2 pg (27.5-34.5); MEAN CORPUSCULAR HGB CONC 33.1 g/dL (33.2-36.2); MEAN CORPUSCULAR VOLUME 91.4 fL (81-97); MEAN PLATELET VOLUME 7.6 fL (7.4-10.4); MONOCYTES # (AUTO) 0.49 x10^3/uL (0.2-0.8); MONOCYTES % (AUTO) 10 % (2-9); NEUTROPHILS # (AUTO) 3.18 x10^3/uL (1.8-6.8); NEUTROPHILS % (AUTO) 64 % (42-75); PLATELET COUNT 273 x10^3/uL (130-400); RED CELL DISTRIBUTION WIDTH 14.1 % (9.4-14.8)
[2019-05-23 01:14] VITALS: BP 119/73
--- NOTE | 2019-05-23 01:14 | NUR ---
PT MEDICATED PER MAR
[2019-05-23 01:22] LABS: ALANINE AMINOTRANSFERASE 34 U/L (12-78); ALBUMIN 3.5 g/dL (3.4-5.0); ANION GAP 5 mmol/L (5-15); CALCIUM 8.3 mg/dL (8.5-10.1); CHLORIDE 112 mmol/L (98-107); CREATININE 1.26 mg/dL (0.7-1.3)
[2019-05-23 01:24] LABS: ALKALINE PHOSPHATASE 79 U/L (45-117); BILIRUBIN,TOTAL 0.3 mg/dL (0.2-1.0); TOTAL PROTEIN 7.2 g/dL (6.4-8.2)
== END 2019-05-23 02:36 | disposition home or self-care (01) ==
LOC: ED 02:24
DX: K29.00 Acute gastritis without bleeding (principal); F17.210 Nicotine dependence, cigarettes, uncomplicated; J45.909 Unspecified asthma, uncomplicated
CPT/HCPCS: 36415; 80053; 83690; 85025; 99283

== ENCOUNTER 2019-06-02 06:06 | Emergency (ER) | payer MEDICAID ==
[~2019-06-02] VITALS: Ht 180.3 cm; Wt 80.4 kg
[2019-06-02 06:11] VITALS: BP 143/101
--- NOTE | 2019-06-02 07:25 | NUR ---
PROVIDER SEEING PT. PT AWOKE WITH ERYTHEMA, DISCHARGE SWELLING RIGHT EYE
[2019-06-02] MEDS ORDERED: ROBITUSSIN (08:02)
[2019-06-02] MEDS ORDERED: CLARITIN (08:02)
== END 2019-06-02 08:04 | disposition home or self-care (01) ==
LOC: ED 07:58
DX: H10.021 Other mucopurulent conjunctivitis, right eye (principal); E11.9 Type 2 diabetes mellitus without complications; F17.200 Nicotine dependence, unspecified, uncomplicated
CPT/HCPCS: 99283

== ENCOUNTER 2019-09-29 22:17 | Emergency (ER) | payer MEDICAID ==
[~2019-09-29] VITALS: Ht 180.3 cm; Wt 90.0 kg
[~2019-09-29 22:17] MED LIST changes: +CLARITIN; +ROBITUSSIN
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
--- NOTE | 2019-09-29 22:59 | NUR ---
Pt prompted for ua. Declines ability to produce sample. "i really need some water first."
[2019-09-29 23:18] VITALS: BP 135/45
[2019-09-29] MEDS ORDERED: ACETAMINOPHEN 500 MG TABLET PO ONE (23:30)
[2019-09-29 23:38] LABS: BASOPHILS # (AUTO) 0.02 x10^3/uL (0-0.1); BASOPHILS % (AUTO) 0 % (0-1); EOSINOPHILS # (AUTO) 0.21 x10^3/uL (0-0.4); EOSINOPHILS % (AUTO) 3 % (1-7); LYMPHOCYTES # (AUTO) 1.28 x10^3/uL (1-3.4); LYMPHOCYTES % (AUTO) 18 % (22-44); MD NO; MEAN CORPUSCULAR HEMOGLOBIN 30.1 pg (27.5-34.5); MEAN CORPUSCULAR HGB CONC 33.2 g/dL (33.2-36.2); MEAN CORPUSCULAR VOLUME 90.6 fL (81-97); MEAN PLATELET VOLUME 7.8 fL (7.4-10.4); MONOCYTES # (AUTO) 0.57 x10^3/uL (0.2-0.8); MONOCYTES % (AUTO) 8 % (2-9); NEUTROPHILS # (AUTO) 4.94 x10^3/uL (1.8-6.8); NEUTROPHILS % (AUTO) 70 % (42-75); PLATELET COUNT 256 x10^3/uL (130-400); RED BLOOD COUNT 4.76 x10^6/uL (4.38-5.82); RED CELL DISTRIBUTION WIDTH 14.6 % (9.4-14.8)
[2019-09-29 23:45] LABS: ALANINE AMINOTRANSFERASE 32 U/L (12-78); ALBUMIN 3.7 g/dL (3.4-5.0); ANION GAP 4 mmol/L (5-15); CALCIUM 8.6 mg/dL (8.5-10.1); CHLORIDE 109 mmol/L (98-107); CREATININE 0.99 mg/dL (0.7-1.3)
[2019-09-29 23:48] LABS: ALKALINE PHOSPHATASE 74 U/L (45-117); BILIRUBIN,TOTAL 0.3 mg/dL (0.2-1.0); TOTAL PROTEIN 7.2 g/dL (6.4-8.2)
--- NOTE | 2019-09-30 00:01 | NUR ---
Pt to ct.
--- NOTE | 2019-09-30 00:27 | NUR ---
Pt states not able to provide ua and refusing straight cath by this rn.
[2019-09-30] MEDS ORDERED: OMNIPAQUE 350 MG/ML, 100ML BOTTLE ONE (00:28)
== END 2019-09-30 01:07 | disposition home or self-care (01) ==
LOC: MERGE 22:17 → ED 09-30
DX: S20.211A Contusion of right front wall of thorax, initial encounter (principal); R51 Headache; F17.200 Nicotine dependence, unspecified, uncomplicated; Y00.XXXA Assault by blunt object, initial encounter; Y93.89 Activity, other specified; Y92.89 Other specified places as the place of occurrence of the external cause; Y99.8 Other external cause status
CPT/HCPCS: 36415; 71260; 74177; 80053; 85025; 99285; Q9967

== ENCOUNTER 2019-11-07 01:44 | Emergency (ER) | payer MEDICAID ==
[~2019-11-07] VITALS: Ht 180.3 cm; Wt 79.9 kg
[2019-11-07 03:21] VITALS: BP 123/71
== END 2019-11-07 03:23 | disposition home or self-care (01) ==
LOC: ED 02:40
DX: R06.00 Dyspnea, unspecified (principal); F17.210 Nicotine dependence, cigarettes, uncomplicated; R94.31 Abnormal electrocardiogram [ECG] [EKG]; R06.02 Shortness of breath
CPT/HCPCS: 93005; 99406

== ENCOUNTER 2019-12-07 08:23 | Emergency (ER) | payer MEDICAID ==
[~2019-12-07] VITALS: Ht 180.3 cm; Wt 69.4 kg
[2019-12-07 08:28] VITALS: BP 113/70
--- NOTE | 2019-12-07 08:38 | NUR ---
Patient given discharge instructions and they have confirmed that they understand the instructions. Patient ambulatory with steady gait.
== END 2019-12-07 08:40 | disposition home or self-care (01) ==
LOC: ED 08:35
DX: J45.909 Unspecified asthma, uncomplicated (principal); Z76.0 Encounter for issue of repeat prescription
CPT/HCPCS: 99281

== ENCOUNTER 2019-12-09 23:03 | Emergency (ER) | payer MEDICAID ==
[~2019-12-09] VITALS: Ht 180.3 cm; Wt 71.6 kg
[2019-12-09] MEDS ORDERED: ALBUTEROL/IPRATROPIUM 2.5MG/0.5MG, 3 ML ONE (23:22)
[2019-12-09] MEDS ORDERED: ALBUTEROL/IPRATROPIUM 2.5MG/0.5MG, 3 ML NPPB ONE (23:30)
--- NOTE | 2019-12-09 23:54 | NUR ---
Patient presents to ER c/o "having a hard time breathing all day." He states his rescue inhaler is not working. Hx of asthma. Patient is in NAD. Respirations even and unlabored. Meds admin per may. Patient keeps falling asleep during nebulized tx.
[2019-12-10 00:03] VITALS: BP 121/66
== END 2019-12-10 00:54 | disposition home or self-care (01) ==
LOC: ED 12-10 00:30
DX: J45.41 Moderate persistent asthma with (acute) exacerbation (principal); R06.02 Shortness of breath; R94.31 Abnormal electrocardiogram [ECG] [EKG]; F17.200 Nicotine dependence, unspecified, uncomplicated; Z98.890 Other specified postprocedural states
CPT/HCPCS: 71045; 93005; 94640; 99283; J7512

== ENCOUNTER 2020-01-21 18:44 | Emergency (ER) | payer MEDICAID ==
[~2020-01-21] VITALS: Ht 180.3 cm; Wt 73.0 kg
--- NOTE | 2020-01-21 19:04 | NUR ---
Pt states that he had a plan to kill himself. He was going to tie a sheet around his neck and choke himself.
--- NOTE | 2020-01-21 19:04 | NUR ---
Pt clothing placed in pt bag and locked up. Sitter at bedside for pt safety.
[2020-01-21 19:17] LABS: BASOPHILS % (AUTO) 1 % (0-1); EOSINOPHILS % (AUTO) 2 % (1-7); LYMPHOCYTES % (AUTO) 25 % (22-44); MEAN CORPUSCULAR HEMOGLOBIN 29.1 pg (27.5-34.5); MEAN CORPUSCULAR HGB CONC 32.8 g/dL (33.2-36.2); MEAN PLATELET VOLUME 7.2 fL (7.4-10.4); MONOCYTES % (AUTO) 14 % (2-9); NEUTROPHILS % (AUTO) 59 % (42-75); PLATELET COUNT 282 x10^3/uL (130-400); RED BLOOD COUNT 4.95 x10^6/uL (4.38-5.82); RED CELL DISTRIBUTION WIDTH 13.9 % (9.4-14.8)
[2020-01-21 19:27] LABS: ALANINE AMINOTRANSFERASE 32 U/L (12-78); ANION GAP 4 mmol/L (5-15); CALCIUM 9.1 mg/dL (8.5-10.1); CHLORIDE 109 mmol/L (98-107); CREATININE 1.17 mg/dL (0.7-1.3)
[2020-01-21 19:29] LABS: ALKALINE PHOSPHATASE 63 U/L (45-117); MD NO; SALICYLATE LEVEL < 1.7 mg/dL (2.8-20.0); TOTAL PROTEIN 7.8 g/dL (6.4-8.2)
[2020-01-21 20:31] LABS: AMPHETAMINE SCREEN, URINE Negative (Negative); BARBITURATE SCREEN, URINE Negative (Negative); BENZODIAZEPINE SCREEN, URINE Negative (Negative); CANNABINOID SCREEN, URINE Negative (Negative); COCAINE SCREEN, URINE Negative (Negative); METHADONE SCREEN, URINE Negative (Negative); OPIATE SCREEN, URINE Negative (Negative)
--- NOTE | 2020-01-21 22:38 | NUR ---
TP RN: PT ON LEGAL HOLD, AWAITING COMPLETION OF PAPERWORK FROM PROVIDER TO FAX PACKET
--- NOTE | 2020-01-21 22:52 | NUR ---
DORA RN: PACKET FAXED TO [facility]
--- NOTE | 2020-01-22 03:14 | NUR ---
Pt pacing back in forth in room. RN asked pt if he was anxious or wanted medication to help him relax. Pt refused. Pt stated this is what he does at night. NOLA
--- NOTE | 2020-01-22 07:17 | NUR ---
DIET TRAY ORDERED AT THIS TIME.
--- NOTE | 2020-01-22 07:17 | NUR ---
REPORT RECEIVED FROM TIFFANY OLSEN.
--- NOTE | 2020-01-22 08:26 | NUR ---
diet tray provid at this time.
--- NOTE | 2020-01-22 08:59 | NUR ---
pt sleeping in [facility]. resps even and unlabored. sitter monitoring from [facility] for safety.
[2020-01-22 09:16] VITALS: BP 122/65
--- NOTE | 2020-01-22 10:36 | NUR ---
report given to yuval freedman. all questions answered.
--- NOTE | 2020-01-22 12:08 | NUR ---
Break RN: Patient wheeled up to behavioral unit by tech, all patient belongings taken with patient.
[2020-01-22] MEDS ORDERED: ERGO500017 PO (16:39)
[2020-01-22] MEDS ORDERED: BUDE10.2 INH (16:39)
[2020-01-22] MEDS ORDERED: MONT10TA11 PO (16:39)
[2020-01-22] MEDS ORDERED: BENZ1TAB61 PO (16:39)
[2020-01-22] MEDS ORDERED: ALBU6.7H8 INH (16:39)
[2020-01-22] MEDS ORDERED: HYDROCHLOROTH12.5 MG PO (16:39)
== END 2020-01-22 15:08 | disposition other institution (70) ==
LOC: ED 21:14
DX: R45.851 Suicidal ideations (principal); F20.9 Schizophrenia, unspecified; Z87.891 Personal history of nicotine dependence; Z85.3 Personal history of malignant neoplasm of breast
CPT/HCPCS: 36415; 80053; 80307; 85025; 99285

== ENCOUNTER 2020-01-22 08:23 | Inpatient (IN) | payer MEDICAID ==
[~2020-01-22] VITALS: Ht 180.3 cm; Wt 75.1 kg
[2020-01-22] MEDS ORDERED: ONDANSETRON ODT 4 MG PO PRN (09:00)
[2020-01-22] MEDS ORDERED: BISACODYL 10 MG SUPP PR PRN (09:00)
[2020-01-22] MEDS ORDERED: ACETAMINOPHEN 325 MG TABLET PO PRN (09:00)
[2020-01-22] MEDS ORDERED: DOCUSATE 100 MG CAPSULE PO PRN (09:00)
[2020-01-22] MEDS ORDERED: POLYETHYLENE GLYCOL 17 GM PACKET PO PRN (09:00)
[2020-01-22 12:00] VITALS: BP_SYST 138; BP_SYST 142; BP_DIAS 90; BP_DIAS 98
[2020-01-22 13:31] LABS: MICROSCOPIC AUTO
[2020-01-22] MEDS ORDERED: FLU VACC QS2020-21(6MOS UP)/PF 60MCG/0.5 ML SYR IM-VACC ONE (16:00)
[2020-01-22] MEDS ORDERED: QUETIAPINE 25MG TABLET PO PRN (16:30)
[2020-01-22] MEDS ORDERED: MONT10TA11 PO (16:39)
[2020-01-22] MEDS ORDERED: BUDE10.2 INH (16:39)
[2020-01-22] MEDS ORDERED: HYDROCHLOROTH12.5 MG PO (16:39)
[2020-01-22] MEDS ORDERED: ERGO500017 PO (16:39)
[2020-01-22] MEDS ORDERED: ALBU6.7H8 INH (16:39)
[2020-01-22] MEDS ORDERED: BENZ1TAB61 PO (16:39)
[2020-01-22] MEDS ORDERED: ALBUTEROL HFA 90 MCG/SPRAY INH SCH (19:00)
[2020-01-22] MEDS: BENZTROPINE 1 MG TABLET PO SCH (19:58)
[2020-01-22 20:00] VITALS: BP 130/75
[2020-01-22] MEDS ORDERED: BUDESONIDE 0.5 MG/2 ML INHA INH SCH (21:00)
[2020-01-22] MEDS ORDERED: ALBUTEROL HFA 90 MCG/SPRAY INH PRN (23:00)
[2020-01-23 06:57] LABS: CHOL/HDL RATIO 2.4; FREE T4 (FREE THYROXINE) 0.89 ng/dL (0.76-1.46); LDL/HDL RATIO 1.3 (0.5-3.0)
[2020-01-23 07:40] VITALS: BP 134/81
[2020-01-23] MEDS: FLUTICASONE/VILANTEROL 100-25MCG/INH INH SCH ×2 (09:00→09:52)
[2020-01-23 18:59] VITALS: BP 117/72
[2020-01-23] MEDS: BENZTROPINE 1 MG TABLET PO SCH (20:25)
[2020-01-24 07:10] VITALS: BP 126/75
[2020-01-24] MEDS: FLUTICASONE/VILANTEROL 100-25MCG/INH INH SCH (08:33)
[2020-01-24 19:30] VITALS: BP 131/67
[2020-01-24] MEDS: BENZTROPINE 1 MG TABLET PO SCH (20:36)
[2020-01-25 07:31] VITALS: BP 131/79
[2020-01-25] MEDS: FLUTICASONE/VILANTEROL 100-25MCG/INH INH SCH (09:45)
[2020-01-25 19:55] VITALS: BP 124/81
[2020-01-25] MEDS: BENZTROPINE 1 MG TABLET PO SCH (20:19)
[2020-01-26 07:31] VITALS: BP 94/62
[2020-01-26] MEDS: FLUTICASONE/VILANTEROL 100-25MCG/INH INH SCH (08:36)
[2020-01-26] MEDS ORDERED: QUET25TA7 PO (14:08)
[2020-01-26] MEDS ORDERED: BENZ1TAB61 PO (14:08)
[2020-01-26] MEDS ORDERED: FLUT1AER INH (14:08)
[2020-01-26] MEDS ORDERED: ALBU18HF INH (14:08)
[2020-01-26 19:18] VITALS: BP 113/72
[2020-01-26] MEDS: BENZTROPINE 1 MG TABLET PO SCH (20:37)
[2020-01-27 07:19] VITALS: BP 125/75
[2020-01-27] MEDS: FLUTICASONE/VILANTEROL 100-25MCG/INH INH SCH (08:30)
== END 2020-01-27 09:15 | disposition home or self-care (01) | DRG 750 ==
LOC: 3E 12:16
PROVIDERS: ADMIT Psychiatry & Neurology Psychosomatic Medicine; ATTEND Psychiatry & Neurology Psychosomatic Medicine
DX: F25.0 Schizoaffective disorder, bipolar type (principal); R45.851 Suicidal ideations; F31.9 Bipolar disorder, unspecified; F15.10 Other stimulant abuse, uncomplicated; J45.998 Other asthma; Z79.899 Other long term (current) drug therapy; Z79.891 Long term (current) use of opiate analgesic; Z79.01 Long term (current) use of anticoagulants; Z59.0 Homelessness; Z80.3 Family history of malignant neoplasm of breast; Z87.891 Personal history of nicotine dependence
CPT/HCPCS: 36415; 80061; 81001; 84439; 84443; 87426; 90686; 93005

== ENCOUNTER 2020-01-28 15:36 | Emergency (ER) | payer MEDICAID ==
[~2020-01-28] VITALS: Ht 180.3 cm; Wt 75.7 kg
[~2020-01-28 15:36] MED LIST changes: +ALBU18HF INH; +BUDE10.2 INH; +ERGO500017 PO; +FLUT1AER INH; +HYDROCHLOROTH12.5 MG PO; +MONT10TA11 PO; +QUET25TA7 PO
[2020-01-28 16:36] VITALS: BP 124/65
== END 2020-01-28 16:38 | disposition home or self-care (01) ==
LOC: ED 16:02
DX: J45.31 Mild persistent asthma with (acute) exacerbation (principal); R06.02 Shortness of breath; I51.7 Cardiomegaly; F17.200 Nicotine dependence, unspecified, uncomplicated; Z76.0 Encounter for issue of repeat prescription
CPT/HCPCS: 93005; 99283

== ENCOUNTER 2020-02-10 00:09 | Emergency (ER) | payer MEDICAID ==
[~2020-02-10] VITALS: Ht 180.3 cm; Wt 80.0 kg
[~2020-02-10 00:09] MED LIST changes: +MIRT-37 PO; -MIRT15TA PO
[2020-02-10 00:19] VITALS: BP 136/84
--- NOTE | 2020-02-10 00:24 | NUR ---
39 Y/O MALE BIB [facility] FOR SOB. EMS REPORT THE PT WAS CONSTANTLY USING HIS INHALER WHICH CAUSED SHAKINESS AND ANXIETY. EMS EDUCATED ON THE PROPER WAY HE SHOULD BE USING HIS INHALER. HX OF ASTHMA. PT IS ALERT AND ORIENTED UPON ARRIVAL TO ER. NO DISTRESS NOTED. PT LAUGHING AND JOKING WITH EMS STAFF. SPEAKING FULL AND COMPETE SENTENCES WITHOUT DIFFICULTY. PT REQUESTING ANOTHER PRESCRIPTION FOR HIS INHALER.
--- NOTE | 2020-02-10 01:27 | NUR ---
REPORT TO PRETTY LU
--- NOTE | 2020-02-10 01:36 | NUR ---
Report received from PRETTY Doherty. This RN to assume care.
--- NOTE | 2020-02-10 01:38 | NUR ---
Discharge instructions given. All questions and concerns addressed. Patient ambulatory with a steady gait. Belongings with patient.
== END 2020-02-10 01:40 | disposition home or self-care (01) ==
LOC: ED 00:39
DX: J45.20 Mild intermittent asthma, uncomplicated (principal); Z76.0 Encounter for issue of repeat prescription; R06.00 Dyspnea, unspecified; R94.31 Abnormal electrocardiogram [ECG] [EKG]; R07.9 Chest pain, unspecified
CPT/HCPCS: 71045; 93005; 99283

== ENCOUNTER → 2020-02-11 | Emergency (ER) | payer MEDICAID ==
[~2020-02-11] VITALS: Ht 180.3 cm; Wt 79.0 kg
[2020-02-11 03:38] VITALS: BP 141/78
--- NOTE | 2020-02-11 03:50 | NUR ---
seen by MD in triage. patient discharged with prescription and instruction. verbalized understanding.
== END ==
LOC: ED 03:40
DX: J45.909 Unspecified asthma, uncomplicated (principal); Z76.0 Encounter for issue of repeat prescription; Z72.9 Problem related to lifestyle, unspecified; Z87.891 Personal history of nicotine dependence
CPT/HCPCS: 99281

== ENCOUNTER 2020-02-19 22:50 | Emergency (ER) | payer MEDICAID ==
[~2020-02-19] VITALS: Ht 180.3 cm; Wt 81.6 kg
[2020-02-20 00:31] VITALS: BP 130/79
== END 2020-02-20 00:34 | disposition home or self-care (01) ==
LOC: ED 23:51
DX: T45.0X1A Poisoning by antiallergic and antiemetic drugs, accidental (unintentional), initial encounter (principal); R10.9 Unspecified abdominal pain; R09.89 Other specified symptoms and signs involving the circulatory and respiratory systems; R68.2 Dry mouth, unspecified; R50.9 Fever, unspecified; J45.909 Unspecified asthma, uncomplicated; Z87.891 Personal history of nicotine dependence; Y92.89 Other specified places as the place of occurrence of the external cause
CPT/HCPCS: 71045; 99283

== ENCOUNTER 2020-02-27 09:22 | Emergency (ER) | payer MEDICAID ==
[~2020-02-27] VITALS: Ht 180.3 cm; Wt 80.7 kg
[2020-02-27 09:24] VITALS: BP 127/61
--- NOTE | 2020-02-27 09:29 | NUR ---
PT AMBULATORY TO RM WITH STEADY GAIT
== END 2020-02-27 10:23 | disposition home or self-care (01) ==
LOC: ED 09:34
DX: J45.31 Mild persistent asthma with (acute) exacerbation (principal); Z76.0 Encounter for issue of repeat prescription
CPT/HCPCS: 99281

== ENCOUNTER 2020-03-01 23:36 | Emergency (ER) | payer MEDICAID ==
[~2020-03-01] VITALS: Ht 180.3 cm; Wt 64.0 kg
--- NOTE | 2020-03-01 23:51 | NUR ---
COVID TEST WALKED TO LAB
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
[2020-03-02] MEDS ORDERED: MAALOX/HYOSCYAMINE/LIDOCAINE 45 ML BTL PO ONE
[2020-03-02] MEDS ORDERED: MAALOX/HYOSCYAMINE/LIDOCAINE 45 ML BTL ONE (00:08)
[2020-03-02 00:50] VITALS: BP 121/75
== END 2020-03-02 00:54 | disposition home or self-care (01) ==
LOC: ED 23:55
DX: K29.00 Acute gastritis without bleeding (principal); Z20.828 Contact with and (suspected) exposure to other viral communicable diseases; R05 Cough; R07.89 Other chest pain; R94.31 Abnormal electrocardiogram [ECG] [EKG]; Z87.891 Personal history of nicotine dependence; J45.909 Unspecified asthma, uncomplicated
CPT/HCPCS: 71045; 87635; 93005; 99285

== ENCOUNTER 2020-03-17 04:57 | Emergency (ER) | payer MEDICAID ==
[~2020-03-17] VITALS: Ht 180.3 cm; Wt 82.0 kg
[~2020-03-17 04:57] MED LIST changes: -MONT10TA11 PO; +MONT10TA96 PO
[2020-03-17 05:06] VITALS: BP 117/55
== END 2020-03-17 05:41 | disposition home or self-care (01) ==
LOC: ED 05:27
DX: J45.909 Unspecified asthma, uncomplicated (principal); Z76.0 Encounter for issue of repeat prescription
CPT/HCPCS: 99281

== ENCOUNTER 2020-04-02 10:26 | Emergency (ER) | payer MEDICAID ==
[~2020-04-02] VITALS: Ht 180.3 cm; Wt 83.0 kg
[2020-04-02 10:29] VITALS: BP 133/84
--- NOTE | 2020-04-02 10:44 | NUR ---
REQUESTING PRESCRIPTION FOR ALBUTEROL
== END 2020-04-02 11:57 | disposition home or self-care (01) ==
LOC: ED 11:08
DX: J45.40 Moderate persistent asthma, uncomplicated (principal); Z76.0 Encounter for issue of repeat prescription
CPT/HCPCS: 99281

== ENCOUNTER 2020-04-02 15:43 | Emergency (ER) | payer MEDICAID ==
[~2020-04-02] VITALS: Ht 180.3 cm; Wt 75.0 kg
[2020-04-02] MEDS ORDERED: LORazepam 1MG TABLET ONE (16:12)
--- NOTE | 2020-04-02 16:15 | NUR ---
MED GIVEN PER MAR.
[2020-04-02] MEDS ORDERED: LORazepam 1MG TABLET PO ONE (16:30)
[2020-04-02 16:59] VITALS: BP 123/71
== END 2020-04-02 17:00 | disposition home or self-care (01) ==
LOC: ED 16:51
DX: R25.1 Tremor, unspecified (principal); T50.905A Adverse effect of unspecified drugs, medicaments and biological substances, initial encounter; J45.909 Unspecified asthma, uncomplicated; Y92.89 Other specified places as the place of occurrence of the external cause
CPT/HCPCS: 99283

== ENCOUNTER 2020-04-19 19:24 | Emergency (ER) | payer MEDICAID ==
[~2020-04-19] VITALS: Ht 180.3 cm; Wt 80.0 kg
[2020-04-19 19:45] VITALS: BP 128/89
--- NOTE | 2020-04-19 21:17 | NUR ---
[id number]
--- NOTE | 2020-04-19 21:28 | NUR ---
NILX2
--- NOTE | 2020-04-19 21:33 | NUR ---
NILX3 LWBS
== END 2020-04-19 21:35 | disposition left against medical advice (07) ==
LOC: ED 21:30
DX: M54.5 Low back pain (principal); Z53.21 Procedure and treatment not carried out due to patient leaving prior to being seen by health care provider

== ENCOUNTER 2020-05-15 13:38 | Emergency (ER) | payer MEDICAID ==
[~2020-05-15] VITALS: Ht 180.3 cm; Wt 88.9 kg
[~2020-05-15 13:38] MED LIST changes: +MONT10TA17 PO; -MONT10TA96 PO
[2020-05-15 13:41] VITALS: BP 143/55
== END 2020-05-15 14:47 | disposition home or self-care (01) ==
LOC: ED 14:00
DX: J45.909 Unspecified asthma, uncomplicated (principal); Z76.0 Encounter for issue of repeat prescription
CPT/HCPCS: 99281

== ENCOUNTER 2020-05-31 13:29 | Emergency (ER) | payer MEDICAID ==
[~2020-05-31] VITALS: Ht 180.3 cm; Wt 85.8 kg
[2020-05-31] MEDS ORDERED: ALBUTEROL/IPRATROPIUM 2.5MG/0.5MG, 3 ML ONE (14:13)
--- NOTE | 2020-05-31 14:27 | NUR ---
PT GETTING BREATHING TX. PT TOELRATING WELL
[2020-05-31] MEDS ORDERED: ALBUTEROL/IPRATROPIUM 2.5MG/0.5MG, 3 ML NPPB ONE (14:30)
[2020-05-31 14:36] VITALS: BP 128/62
== END 2020-05-31 14:37 | disposition home or self-care (01) ==
LOC: ED 13:57
DX: J45.30 Mild persistent asthma, uncomplicated (principal)
CPT/HCPCS: 94640; 99283

== ENCOUNTER 2020-07-13 09:41 | Emergency (ER) | payer MEDICAID ==
[~2020-07-13] VITALS: Ht 180.3 cm; Wt 75.4 kg
[2020-07-13 09:44] VITALS: BP 121/78
[2020-07-13] MEDS ORDERED: ALBUTEROL/IPRATROPIUM 2.5MG/0.5MG, 3 ML ONE (10:18)
[2020-07-13] MEDS ORDERED: ALBUTEROL/IPRATROPIUM 2.5MG/0.5MG, 3 ML NEB ONE (10:30)
--- NOTE | 2020-07-13 10:43 | NUR ---
PT HAS CO ASTHMA AND TIGHT CHEST W BREATHING ADMIN NEB PER ORDERS.
--- NOTE | 2020-07-13 10:44 | NUR ---
Patient/Caregiver given discharge instructions and they have confirmed that they understand the instructions. Patient ambulatory with steady gait.
== END 2020-07-13 10:45 | disposition home or self-care (01) ==
LOC: ED 10:34
DX: J45.31 Mild persistent asthma with (acute) exacerbation (principal)
CPT/HCPCS: 93005; 94640; 99283; J7512

== ENCOUNTER 2020-07-29 21:30 | Emergency (ER) | payer MEDICAID ==
[~2020-07-29] VITALS: Ht 180.3 cm; Wt 74.9 kg
[2020-07-29] MEDS ORDERED: ALBUTEROL/IPRATROPIUM 2.5MG/0.5MG, 3 ML ONE (21:57)
[2020-07-29] MEDS ORDERED: ALBUTEROL/IPRATROPIUM 2.5MG/0.5MG, 3 ML NPPB ONE (22:00)
[2020-07-29 23:03] VITALS: BP 132/74
== END 2020-07-29 23:06 | disposition home or self-care (01) ==
LOC: ED 23:00
DX: J45.31 Mild persistent asthma with (acute) exacerbation (principal); R06.02 Shortness of breath; R06.00 Dyspnea, unspecified
CPT/HCPCS: 93005; 94640; 99283; J7512

== ENCOUNTER 2020-08-31 23:58 | Emergency (ER) | payer MEDICAID ==
[~2020-08-31] VITALS: Ht 180.3 cm; Wt 73.0 kg
--- NOTE | 2020-09-01 00:45 | NUR ---
TASK RN: URINE SENT TO LAB AT THIS TIME
[2020-09-01 00:59] LABS: BASOPHILS % (AUTO) 1 % (0-1); EOSINOPHILS % (AUTO) 5 % (1-7); LYMPHOCYTES % (AUTO) 40 % (22-44); MEAN CORPUSCULAR HEMOGLOBIN 30.4 pg (27.5-34.5); MEAN CORPUSCULAR HGB CONC 33.5 g/dL (33.2-36.2); MEAN PLATELET VOLUME 7.5 fL (7.4-10.4); MONOCYTES % (AUTO) 11 % (2-9); NEUTROPHILS % (AUTO) 43 % (42-75); PLATELET COUNT 245 x10^3/uL (130-400); RED BLOOD COUNT 4.65 x10^6/uL (4.38-5.82)
[2020-09-01 01:01] LABS: MD NO
[2020-09-01 01:09] LABS: ALBUMIN 3.1 g/dL (3.4-5.0); ANION GAP 6 mmol/L (5-15); CALCIUM 7.8 mg/dL (8.5-10.1); CHLORIDE 113 mmol/L (98-107); SALICYLATE LEVEL < 1.7 mg/dL (2.8-20.0)
[2020-09-01 01:10] LABS: AMPHETAMINE SCREEN, URINE Positive (Negative); BARBITURATE SCREEN, URINE Negative (Negative); BENZODIAZEPINE SCREEN, URINE Negative (Negative); CANNABINOID SCREEN, URINE Negative (Negative); COCAINE SCREEN, URINE Negative (Negative); METHADONE SCREEN, URINE Negative (Negative); OPIATE SCREEN, URINE Negative (Negative)
--- NOTE | 2020-09-01 01:33 | NUR ---
PT SLEEPING. RR EVEN NON LABORED. WILL CTM.
--- NOTE | 2020-09-01 02:47 | NUR ---
pt sleeping, rr even non labored. vss. will ctm.
--- NOTE | 2020-09-01 05:34 | NUR ---
pt sleeping, rr even non labored. vss. will ctm.
--- NOTE | 2020-09-01 06:23 | NUR ---
PT SLEEPING. RR EVEN NON LABORED. PENDING TELEPSYCH CONSULT.
--- NOTE | 2020-09-01 06:54 | NUR ---
SOC psych consult cancelled at this time per dr chen's request. Dr Chen is requesting psych reinforcement maker to see pt when available.
--- NOTE | 2020-09-01 08:01 | NUR ---
PT PROVIDED WITH MEAL TRAY. DENIES FURTHER NEEDS.
--- NOTE | 2020-09-01 09:03 | NUR ---
PT PROVIDED WITH COLD WATER AND ICE PER REQUEST. PT ORGANIZING ROOM AND PACING/DANCING. PT VERBALIZES THIS IS HOW HE LISA WITH THE VOICES
--- NOTE | 2020-09-01 10:14 | NUR ---
ARNOLD GILBERT AT BEDSIDE. ASSESSMENT IN PROGRESS
--- NOTE | 2020-09-01 11:36 | NUR ---
Task RN: with reassessment patient still quite energetic: pacing/talking to self in tangetial/hyperverbal manner Senior Informatica Developer spent 15 min providing calm/redirection. Patient non-receptive Poc reviewed with throughput: (Psychiatry EMERGENCY MANAGEMENT PROGRAM SPECIALIST to assess shortly)
--- NOTE | 2020-09-01 12:30 | NUR ---
JEAN MARIE GLASS AT BEDSIDE
[2020-09-01] MEDS ORDERED: PALIPERIDONE 3 MG TAB.ER.24 PO ONE (13:00)
--- NOTE | 2020-09-01 13:09 | NUR ---
PT PROVIDED WITH MEAL TRAY
[2020-09-01 13:15] VITALS: BP 131/73
--- NOTE | 2020-09-01 13:22 | NUR ---
DISCUSSED POC WITH JAEN MARIE GLASS. PT PLACED ON LEGAL HOLD. ROOM SECURED. BELONGING BAG X1 IN SECURE LOCKER
--- NOTE | 2020-09-01 14:03 | NUR ---
RAPID COVID SWAB OBTAINED PER GUIDELINES-WALKED TO LAB
[2020-09-01] MEDS ORDERED: BENZ2AMP4 PO (16:41)
[2020-09-01] MEDS ORDERED: BENZ1TAB61 PO (16:41)
[2020-09-01] MEDS ORDERED: ALBU8.5H8 INH (16:41)
[2020-09-01] MEDS ORDERED: ARIP30TA4 PO (16:41)
== END 2020-09-01 15:56 ==
LOC: ED 09-01 00:26
DX: R45.851 Suicidal ideations (principal); Z20.822 Contact with and (suspected) exposure to COVID-19; F25.9 Schizoaffective disorder, unspecified; F15.10 Other stimulant abuse, uncomplicated; Z91.19 Patient's noncompliance with other medical treatment and regimen; F17.210 Nicotine dependence, cigarettes, uncomplicated; Z72.9 Problem related to lifestyle, unspecified; J45.909 Unspecified asthma, uncomplicated
CPT/HCPCS: 36415; 80048; 80299; 80307; 80320; 80329; 82040; 85025; 87426; 99285; 99406; G0480

== ENCOUNTER 2020-09-01 14:29 | Inpatient (IN) | payer MEDICAID ==
[~2020-09-01] VITALS: Ht 180.3 cm; Wt 71.3 kg
[2020-09-01] MEDS ORDERED: DOCUSATE 100 MG CAPSULE PO PRN (15:00)
[2020-09-01] MEDS ORDERED: POLYETHYLENE GLYCOL 17 GM PACKET PO PRN (15:00)
[2020-09-01] MEDS ORDERED: HALOPERIDOL 5 MG TABLET PO PRN (15:00)
[2020-09-01] MEDS ORDERED: ONDANSETRON ODT 4 MG PO PRN (15:00)
[2020-09-01] MEDS ORDERED: ACETAMINOPHEN 325 MG TABLET PO PRN (15:00)
[2020-09-01] MEDS ORDERED: BISACODYL 10 MG SUPP PR PRN (15:00)
[2020-09-01 16:22] VITALS: BP 142/92
[2020-09-01] MEDS ORDERED: BENZ1TAB61 PO (16:41)
[2020-09-01] MEDS ORDERED: BENZ2AMP4 PO (16:41)
[2020-09-01] MEDS ORDERED: ALBU8.5H8 INH (16:41)
[2020-09-01] MEDS ORDERED: ARIP30TA4 PO (16:41)
[2020-09-01 19:06] VITALS: BP 125/78
[2020-09-02 06:32] LABS: CHOL/HDL RATIO 2.9; FREE T4 (FREE THYROXINE) 0.97 ng/dL (0.76-1.46); LDL/HDL RATIO 1.3 (0.5-3.0)
[2020-09-02 07:06] LABS: MICROSCOPIC NOT IND
[2020-09-02 07:41] VITALS: BP 123/75
[2020-09-02] MEDS: NICOTINE 14MG/24 HR PATCH.TD24 TD SCH (08:12)
[2020-09-02] MEDS ORDERED: ALBUTEROL SULFATE 2.5 MG/3 ML NEB PRN (14:30)
[2020-09-02] MEDS ORDERED: ALBUTEROL HFA 90 MCG/SPRAY INH PRN (14:30)
[2020-09-02] MEDS: ARIPIPRAZOLE 10 MG TABLET PO SCH (15:10)
[2020-09-02 19:19] VITALS: BP 117/74
[2020-09-02] MEDS: BENZTROPINE 1 MG TABLET PO SCH (20:34)
[2020-09-03 07:43] VITALS: BP 109/57
[2020-09-03] MEDS: ARIPIPRAZOLE 10 MG TABLET PO SCH (08:53)
[2020-09-03] MEDS: NICOTINE 14MG/24 HR PATCH.TD24 TD SCH (09:00)
[2020-09-03 19:38] VITALS: BP 127/78
[2020-09-03] MEDS: BENZTROPINE 1 MG TABLET PO SCH (21:00)
[2020-09-04 08:00] VITALS: BP 123/73
[2020-09-04] MEDS: NICOTINE 14MG/24 HR PATCH.TD24 TD SCH (08:46)
[2020-09-04] MEDS: ARIPIPRAZOLE 10 MG TABLET PO SCH (11:14)
[2020-09-04 19:25] VITALS: BP 122/76
[2020-09-04] MEDS: BENZTROPINE 1 MG TABLET PO SCH (21:00)
[2020-09-05] MEDS: ARIPIPRAZOLE 10 MG TABLET PO SCH (07:47)
[2020-09-05 08:05] VITALS: BP 99/66
[2020-09-05] MEDS ORDERED: BENZ1TAB61 PO (12:36)
[2020-09-05] MEDS ORDERED: ARIP5TAB13 PO (12:36)
[2020-09-05] MEDS ORDERED: ARIPIPRAZOLE 5 MG TABLET PO ONE (13:00)
[2020-09-05] MEDS: BENZTROPINE 1 MG TABLET PO SCH (20:20)
[2020-09-06 07:35] VITALS: BP 121/64
[2020-09-06] MEDS ORDERED: ARIPIPRAZOLE 5 MG TABLET PO SCH (09:00)
== END 2020-09-06 10:43 | disposition home or self-care (01) | DRG 885 ==
LOC: 3E 16:14 → MERGE 16:14 → 3E 09-05 23:25
PROVIDERS: ADMIT Psychiatry & Neurology Psychosomatic Medicine; ATTEND Psychiatry & Neurology Psychosomatic Medicine
DX: F25.0 Schizoaffective disorder, bipolar type (principal); F15.20 Other stimulant dependence, uncomplicated; I10 Essential (primary) hypertension; J45.20 Mild intermittent asthma, uncomplicated; Z80.3 Family history of malignant neoplasm of breast; Z79.899 Other long term (current) drug therapy; Z87.891 Personal history of nicotine dependence
CPT/HCPCS: 36415; 99285; J7613; 71045; 80048; 80061; 80299; 80307; 80320; 80329; 81003; 82040; 82140; 84439; 84443; 85025; 87426; 93005; 94640; 99406; G0480

== ENCOUNTER 2020-09-21 02:22 | Emergency (ER) | payer MEDICAID ==
[~2020-09-21] VITALS: Ht 180.3 cm; Wt 76.6 kg
[~2020-09-21 02:22] MED LIST changes: +ALBU8.5H8 INH; +ARIP30TA4 PO; +ARIP5TAB13 PO
--- NOTE | 2020-09-21 03:36 | NUR ---
PT TO ROOM FROM LOBBY
[2020-09-21] MEDS ORDERED: DEXAMETHASONE 4 MG TABLET PO ONE (04:00)
[2020-09-21] MEDS ORDERED: DEXAMETHASONE 4 MG TABLET ONE (04:00)
[2020-09-21 04:21] VITALS: BP 124/78
[2020-09-21] MEDS ORDERED: DIPHENHYDRAMINE 25 MG CAPSULE PO ONE (04:30)
== END 2020-09-21 04:26 | disposition home or self-care (01) ==
LOC: ED 04:20
DX: J45.21 Mild intermittent asthma with (acute) exacerbation (principal); R94.31 Abnormal electrocardiogram [ECG] [EKG]; F17.210 Nicotine dependence, cigarettes, uncomplicated
CPT/HCPCS: 93005; 99283; 99406

== ENCOUNTER 2020-11-23 21:42 | Emergency (ER) | payer MEDICAID ==
[~2020-11-23] VITALS: Ht 180.3 cm; Wt 71.0 kg
[~2020-11-23 21:42] MED LIST changes: +OLAN5TAB69 PO; -OLAN5TAB9 PO
[2020-11-23 21:52] VITALS: BP 109/75
--- NOTE | 2020-11-23 21:57 | NUR ---
Pt [place] by EMS [place] [facility] on [address] , c/o auditory and visual hallucinations as well as thoughts of SI with no current plan. Pt has a hx of Schizophrenia on Ability. Pt states he takes his medications. Pt calm and cooperative. Pressured speech, rapid thoughts w/ loose associations. Pt states he is seeing and hearing things like crazy. States he is hearing things about the universe, seeing gorillas running around, and seeing a bunch of ugly people. Denies any thoughts of HI. Endorses thoughts of SI, w/ no plan. States he is just having these thoughts. 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 Black bookbag, plata socks x2, black [employer] branded shoes x2, chapstick, multiple surgical masks, small handheld baggy of kleenex. Sitter at bedside, room secured of all potential hazardous materials.
[2020-11-23] MEDS ORDERED: BENZTROPINE 1 MG TABLET ONE (22:28)
[2020-11-23] MEDS ORDERED: ARIPIPRAZOLE 5 MG TABLET ONE (22:28)
[2020-11-23] MEDS ORDERED: BENZTROPINE 1 MG TABLET PO ONE (22:30)
[2020-11-23] MEDS ORDERED: ARIPIPRAZOLE 10 MG TABLET PO ONE (22:30)
--- NOTE | 2020-11-23 22:47 | NUR ---
Patient/Caregiver given discharge instructions and they have confirmed that they understand the instructions. Patient ambulatory with steady gait. NAD, all questions answered appropriately, denies additional needs at this time. No personal belongings left in room after discharge.
== END 2020-11-23 22:52 | disposition home or self-care (01) ==
LOC: ED 22:49
DX: F20.9 Schizophrenia, unspecified (principal); F15.10 Other stimulant abuse, uncomplicated; Z72.9 Problem related to lifestyle, unspecified; F17.210 Nicotine dependence, cigarettes, uncomplicated; J45.909 Unspecified asthma, uncomplicated
CPT/HCPCS: 99283; 99406

== ENCOUNTER 2020-11-24 05:53 | Emergency (ER) | payer MEDICAID ==
[~2020-11-24] VITALS: Ht 180.3 cm; Wt 63.6 kg
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
--- NOTE | 2020-11-24 06:08 | NUR ---
REPORT TO PRIMARY RN, TORIN, AT THIS TIME.
[2020-11-24 06:33] VITALS: BP 119/50
== END 2020-11-24 06:52 | disposition home or self-care (01) ==
LOC: ED 06:07
DX: R06.00 Dyspnea, unspecified (principal); F15.10 Other stimulant abuse, uncomplicated; R94.31 Abnormal electrocardiogram [ECG] [EKG]
CPT/HCPCS: 71045; 93005; 99283

== ENCOUNTER 2020-11-27 22:18 | Emergency (ER) | payer MEDICAID ==
[~2020-11-27] VITALS: Ht 180.3 cm; Wt 60.0 kg
[2020-11-27 22:19] VITALS: BP 115/71
== END 2020-11-28 01:18 | disposition home or self-care (01) ==
LOC: ED 22:39
DX: R07.89 Other chest pain (principal); J45.909 Unspecified asthma, uncomplicated; F17.200 Nicotine dependence, unspecified, uncomplicated
CPT/HCPCS: 71045; 93005; 99283